=== PATIENT | male | born 1945 | race African-American/Black ===

== ENCOUNTER 2017-03-11 19:38 | Emergency (ER) | payer MEDICARE, OTHER ==
[2017-03-11 21:18] LABS: Basophils % (Auto) 0.6 % (0.0-1.8); Eosinophils % (Auto) 4.2 % (0.0-4.3); Hematocrit 40.9 % (35.5-45.6); Mean Corpuscular HGB Conc 34 % (32-34); Mean Corpuscular Hemoglobin 33 pg (28-32); Mean Corpuscular Volume 96 fl (84-94); Platelet Count 281 K/mm3 (140-440); Red Blood Count 4.27 M/mm3 (3.65-5.03); Red Cell Distribution Width 11.4 % (13.2-15.2); White Blood Count 6.8 K/mm3 (4.5-11.0)
[2017-03-11 21:32] LABS: BUN/Creatinine Ratio 15.83; C-Reactive Protein 0.1 mg/dL (0.00-1.30); Calcium 10.3 mg/dL (8.4-10.2); Chloride 95.7 mmol/L (98-107)
[2017-03-11 21:40] LABS: Erythrocyte Sedimentation Rate 6 mm/Hr (0-20)
--- NOTE | 2017-03-12 07:30 | XRay Report ---
BILATERAL ANKLES, 2 VIEWS HISTORY: Swelling. FINDINGS: There is mild bilateral nonspecific soft tissue swelling. This could represent pedal edema. The bony structures are intact. Minimal osteoarthritic changes are identified in both ankles. No evidence for fracture or bone lesion. IMPRESSION: Nonspecific soft tissue swelling or edema. This could represent pedal edema. Minor osteoarthritic changes which appear appropriate for this person's age.
--- NOTE | 2017-03-12 07:31 | XRay Report ---
BILATERAL FEET, 2 VIEWS History: Bilateral foot swelling. Findings: There is mild nonspecific soft tissue swelling. The bony structures are intact. No joint pathology is appreciated. Impression: Nonspecific soft tissue swelling.
[2017-03-12 07:56] VITALS: BP 155/75
--- NOTE | 2017-03-12 09:40 | Emergency Department Report ---
ED Extremity Problem HPI - General Chief complaint: Extremity Problem,Nontraumatic Stated complaint: FOOT PAIN/COLD SX Time Seen by Provider: 03/12/17 09:04 Source: patient Mode of arrival: Ambulatory Limitations: No Limitations - History of Present Illness MD Complaint: extremity swelling -: Gradual Location: bilateral lower extremity History of Same: No Radiation: none Severity scale (0 -10): 6 Consistency: constant Improves with: nothing Worsens with: other (started after taking amlodipine) Associated Symptoms: denies: chest pain, shortness of breath, fever, myalgias - Related Data Allergies Allergy/AdvReac Type Severity Reaction Status Date / Time No Known Allergies Allergy Verified 03/11/17 20:53 ED Review of Systems ROS: Stated complaint: FOOT PAIN/COLD SX Other details as noted in HPI Comment: All other systems reviewed and negative ED Past Medical Hx - Past Medical History Previous Medical History?: Yes Hx Hypertension: Yes Hx Psychiatric Treatment: Yes (Depression) - Surgical History Past Surgical History?: No - Social History Smoking Status: Never Smoker Substance Use Type: None ED Physical Exam - General Limitations: No Limitations General appearance: alert, in no apparent distress - Head Head exam: Present: atraumatic, normocephalic - Eye Eye exam: Present: normal appearance - ENT ENT exam: Present: normal exam, normal orophraynx, mucous membranes moist - Neck Neck exam: Present: normal inspection - Respiratory Respiratory exam: Present: normal lung sounds bilaterally. Absent: respiratory distress - Cardiovascular Cardiovascular Exam: Present: regular rate, normal rhythm. Absent: systolic murmur, diastolic murmur, rubs, gallop - GI/Abdominal GI/Abdominal exam: Present: soft, normal bowel sounds - Rectal Rectal exam: Present: deferred - Extremities Exam Extremities exam: Present: normal inspection - Back Exam Back exam: Present: normal inspection - Neurological Exam Neurological exam: Present: alert, oriented X3 - Psychiatric Psychiatric exam: Present: normal affect, normal mood - Skin Skin exam: Present: warm, dry, intact, normal color. Absent: rash ED Course Vital Signs 03/11/17 03/12/17 03/12/17 20:57 03:48 07:55 Temperature 98.4 F 98.7 F 97.5 F L Pulse Rate 74 68 83 Respiratory 18 18 14 Rate Blood Pressure 149/83 Blood Pressure 153/82 155/75 [Right] O2 Sat by Pulse 98 98 98 Oximetry ED Medical Decision Making - Lab Data Result diagrams: 03/11/17 20:58 03/11/17 20:58 - EKG Data When compared to previous EKG there are: no significant change - Medical Decision Making likely swelling from new medication./ normal labs at this time , will continue meds and he have pmd appointment for next week Critical care attestation.: If time is entered above; I have spent that time in minutes in the direct care of this critically ill patient, excluding procedure time. ED Disposition Clinical Impression: Leg swelling Disposition: DC-01 TO HOME OR SELFCARE Is pt being admited?: No Does the pt Need Aspirin: No Condition: Good Instructions: Leg Edema (ED) Referrals: [facility] [Other] - 3-5 Days Time of Disposition: 09:40
== END 2017-03-12 09:53 | disposition home or self-care (01) ==
LOC: ED 19:38
DX: M79.671 Pain in right foot (principal); M79.672 Pain in left foot; M79.89 Other specified soft tissue disorders; I10 Essential (primary) hypertension; F32.9 Major depressive disorder, single episode, unspecified
CPT/HCPCS: 36415; 80048; 82140; 82550; 85025; 85652; 86140; 99283

== ENCOUNTER 2017-11-16 18:52 | Emergency (ER) | payer MEDICARE, OTHER ==
[2017-11-16] MEDS ORDERED: ASPIRIN PO ONE (19:00)
--- NOTE | 2017-11-16 19:51 | Emergency Department Report ---
ED Chest Pain HPI - General Chief Complaint: Chest Pain Stated Complaint: CHEST PAIN/HYPERTENSIVE Time Seen by Provider: 11/16/17 19:45 Source: patient Mode of arrival: Ambulatory Limitations: Language Barrier - History of Present Illness MD Complaint: other (High BP is his main concern. He was originally on Doxazosin for HTN but it was discontinued and he was put on Lisinopril instead. He has not been taking it because it makes him feel sick and "causes his BP to go up". He denies chest pain, SHOB, nausea, and vomiting. ) - Related Data Allergies Allergy/AdvReac Type Severity Reaction Status Date / Time No Known Allergies Allergy Verified 03/11/17 20:53 Heart Score - HEART Score History: Slightly suspicious EKG: Normal Age: > 65 Risk factors: 1-2 risk factors Troponin: < normal limit HEART Score: 3 - Critical Actions Critical Actions: 4-6 pts:12-16.6% risk of adverse cardiac event. Should be admitted ED Review of Systems ROS: Stated complaint: CHEST PAIN/HYPERTENSIVE Other details as noted in HPI Constitutional: denies: chills, fever Eyes: denies: eye pain, eye discharge, vision change ENT: denies: ear pain, throat pain Respiratory: denies: cough, shortness of breath, wheezing Cardiovascular: denies: chest pain, palpitations Endocrine: no symptoms reported Gastrointestinal: denies: abdominal pain, nausea, diarrhea Genitourinary: denies: urgency, dysuria Musculoskeletal: denies: back pain, joint swelling, arthralgia Skin: denies: rash, lesions Neurological: denies: headache, weakness, paresthesias Psychiatric: denies: anxiety, depression Hematological/Lymphatic: denies: easy bleeding, easy bruising ED Past Medical Hx - Past Medical History Previous Medical History?: Yes Hx Hypertension: Yes Hx Psychiatric Treatment: Yes (Depression) - Surgical History Past Surgical History?: No - Social History Smoking Status: Never Smoker Substance Use Type: None ED Physical Exam - General Limitations: Language Barrier General appearance: alert, in no apparent distress - Head Head exam: Present: atraumatic, normocephalic - Eye Eye exam: Present: normal appearance - ENT ENT exam: Present: mucous membranes moist - Neck Neck exam: Present: normal inspection - Respiratory Respiratory exam: Present: normal lung sounds bilaterally. Absent: respiratory distress - Cardiovascular Cardiovascular Exam: Present: regular rate, normal rhythm. Absent: systolic murmur, diastolic murmur, rubs, gallop - GI/Abdominal GI/Abdominal exam: Present: soft, normal bowel sounds - Rectal Rectal exam: Present: deferred - Extremities Exam Extremities exam: Present: normal inspection - Back Exam Back exam: Present: normal inspection - Neurological Exam Neurological exam: Present: alert, oriented X3 - Psychiatric Psychiatric exam: Present: normal affect, normal mood - Skin Skin exam: Present: warm, dry, intact, normal color. Absent: rash ED Course Vital Signs 11/16/17 11/16/17 18:57 19:50 Temperature 98.3 F Pulse Rate 64 Respiratory 18 14 Rate Blood Pressure 170/79 O2 Sat by Pulse 96 99 Oximetry MARIPOSA score - Mariposa Score Age > 65: (1) Yes Aspirin use within the Past 7 Days: (1) Yes 3 or more CAD Risk Factors: (0) No 2 or more Angina events in past 24 hrs: (0) No Known CAD with more than 50% Stenosis: (0) No Elevated Cardiac Markers: (0) No ST Deviation Greater than 0.5mm: (0) No MARIPOSA Score: 2 ED Medical Decision Making - Lab Data Result diagrams: 11/16/17 19:22 11/16/17 19:22 Critical care attestation.: If time is entered above; I have spent that time in minutes in the direct care of this critically ill patient, excluding procedure time. ED Disposition Clinical Impression: Hyponatremia Hypertension Qualifiers: Hypertension type: unspecified Qualified Code(s): I10 - Essential (primary) hypertension Disposition: DC- TO HOME OR SELFCARE Is pt being admited?: No Does the pt Need Aspirin: No Condition: Good Instructions: Hypertension (ED) Referrals: PRIMARY CARE, [Primary Care Provider] - 3-5 Days Time of Disposition: 23:29
[2017-11-16 19:57] LABS: Basophils % (Auto) 0.5 % (0.0-1.8); Eosinophils # (Auto) 0.1 K/mm3 (0.0-0.4); Eosinophils % (Auto) 1.5 % (0.0-4.3); Hematocrit 40.3 % (35.5-45.6); Hemoglobin 13.9 gm/dl (11.8-15.2); Lymphocytes # (Auto) 1.3 K/mm3 (1.2-5.4); Lymphocytes % (Auto) 22.5 % (13.4-35.0); Mean Corpuscular HGB Conc 34 % (32-34); Mean Corpuscular Hemoglobin 34 pg (28-32); Mean Corpuscular Volume 98 fl (84-94); Monocytes # (Auto) 0.7 K/mm3 (0.0-0.8); Platelet Count 283 K/mm3 (140-440); Red Blood Count 4.12 M/mm3 (3.65-5.03); Red Cell Distribution Width 11.8 % (13.2-15.2)
[2017-11-16 20:12] LABS: BUN/Creatinine Ratio 14; Blood Urea Nitrogen 13 mg/dL (9-20); Calcium 9.1 mg/dL (8.4-10.2); Hemolysis Index 5
[2017-11-16] MEDS ORDERED: NACL 0.9% 500 ML 500 ML IV ONE (22:32)
[2017-11-16 23:32] VITALS: BP 171/79
== END 2017-11-16 23:56 | disposition home or self-care (01) ==
LOC: ED 18:52
DX: E87.1 Hypo-osmolality and hyponatremia (principal); I10 Essential (primary) hypertension; F32.9 Major depressive disorder, single episode, unspecified
CPT/HCPCS: 36415; 80048; 84484; 85025; 93005; 93010; 99283; J7040

== ENCOUNTER 2020-06-02 20:07 | Emergency (ER) | payer MEDICARE, OTHER ==
[2020-06-02] MEDS ORDERED: ASPIRIN 325 MG TAB PO ONE (20:25)
[2020-06-02 20:48] LABS: Basophils # (Auto) 0.1 K/mm3 (0.0-0.1); Eosinophils # (Auto) 0.1 K/mm3 (0.0-0.4); Eosinophils % (Auto) 2.4 % (0.0-4.3); Hematocrit 37.3 % (35.5-45.6); Hemoglobin 13.4 gm/dl (11.8-15.2); Lymphocytes # (Auto) 1.3 K/mm3 (1.2-5.4); Lymphocytes % (Auto) 24.1 % (13.4-35.0); Mean Corpuscular HGB Conc 36 % (32-34); Mean Corpuscular Volume 97 fl (84-94); Monocytes # (Auto) 0.6 K/mm3 (0.0-0.8); Platelet Count 252 K/mm3 (140-440); Red Blood Count 3.85 M/mm3 (3.65-5.03); Red Cell Distribution Width 11.5 % (13.2-15.2)
--- NOTE | 2020-06-02 21:00 | XRay Report ---
CHEST 1 VIEW 06/02/2020 8:50 PM INDICATION / CLINICAL INFORMATION: Chest Pain. COMPARISON: None available. FINDINGS: SUPPORT DEVICES: None. HEART / MEDIASTINUM: No significant abnormality. LUNGS / PLEURA: No significant pulmonary or pleural abnormality. No pneumothorax. ADDITIONAL FINDINGS: No significant additional findings. IMPRESSION: 1. No acute findings. Signer Name: Yamilka Virk MD Signed: 06/02/2020 8:56 PM Workstation Name: [id number]
[2020-06-02 21:03] LABS: BUN/Creatinine Ratio 12; Blood Urea Nitrogen 11 mg/dL (9-20); Calcium 9.6 mg/dL (8.4-10.2); Hemolysis Index 7
--- NOTE | 2020-06-02 22:09 | Emergency Department Report ---
ED Chest Pain HPI - General Chief Complaint: Chest Pain Stated Complaint: CHEST PAIN, ELEVATED BLOOD PRESSURE Time Seen by Provider: 06/02/20 21:53 Source: patient Mode of arrival: Ambulatory Limitations: No Limitations - History of Present Illness Initial Comments: 75-year-old male, history of hypertension, presents to ED with several complaints. Patient reports he has been unable to eat or sleep over the last 2 weeks. Patient states he has not had an appetite. He denies any vomiting, abdominal pain, diarrhea. He also reports pain all over. Denies fever, cough, SOB. He reports that he has been having some mild chest pain located in the left chest for the last 2 days. Patient is unable to characterize the chest pain. He denies pleuritic pain. Patient reports some mild shortness of breath with exertion. He denies any leg pain or swelling. MD Complaint: chest pain -: days(s) (2) Onset: during exertion Pain Location: left chest Pain Radiation: none Severity: mild Quality: other (Unable to characterize) Improves With: nothing Worsens With: nothing re: dyspnea. denies: nausea, vomting, diaphoresis Other Symptoms: denies: cough, fever, leg swelling - Related Data Previous Rx's Medication Instructions Recorded Last Taken Type Naproxen [Naprosyn] 500 mg PO BID PRN #20 tablet 06/03/20 Unknown Rx Allergies Allergy/AdvReac Type Severity Reaction Status Date / Time No Known Allergies Allergy Verified 03/11/17 20:53 Heart Score - HEART Score History: Slightly suspicious EKG: Normal Age: > 65 Risk factors: 1-2 risk factors Troponin: < normal limit HEART Score: 3 ED Review of Systems ROS: Stated complaint: CHEST PAIN, ELEVATED BLOOD PRESSURE Other details as noted in HPI Comment: All other systems reviewed and negative Constitutional: denies: chills, fever Respiratory: shortness of breath. denies: cough Cardiovascular: chest pain Gastrointestinal: denies: abdominal pain, nausea, vomiting, diarrhea Musculoskeletal: arthralgia ED Past Medical Hx - Past Medical History Previous Medical History?: Yes Hx Hypertension: Yes Hx Psychiatric Treatment: Yes (Depression) - Surgical History Past Surgical History?: No - Social History Smoking Status: Never Smoker Substance Use Type: None - Medications Home Medications: Home Medications Medication Instructions Recorded Confirmed Last Taken Type Naproxen [Naprosyn] 500 mg PO BID PRN #20 tablet 06/03/20 Unknown Rx ED Physical Exam - General Limitations: No Limitations General appearance: alert, in no apparent distress - Head Head exam: Present: atraumatic, normocephalic - Eye Eye exam: Present: normal appearance, EOMI - ENT ENT exam: Present: mucous membranes moist - Neck Neck exam: Present: normal inspection - Respiratory Respiratory exam: Present: normal lung sounds bilaterally. Absent: respiratory distress - Cardiovascular Cardiovascular Exam: Present: regular rate, normal rhythm - GI/Abdominal GI/Abdominal exam: Present: soft. Absent: distended, tenderness - Extremities Exam Extremities exam: Present: normal inspection. Absent: pedal edema, calf tenderness - Back Exam Back exam: Present: normal inspection. Absent: vertebral tenderness - Neurological Exam Neurological exam: Present: alert, oriented X3 - Psychiatric Psychiatric exam: Present: normal affect, normal mood - Skin Skin exam: Present: warm, dry, intact, normal color ED Course Vital Signs 06/02/20 06/02/20 06/02/20 20:13 21:40 22:00 Temperature 98.2 F 98.1 F Pulse Rate 64 61 64 Respiratory 18 18 15 Rate Blood Pressure 175/72 185/78 Blood Pressure 200/75 [Left] O2 Sat by Pulse 95 99 99 Oximetry 06/02/20 06/02/20 06/02/20 22:15 22:30 22:46 Temperature Pulse Rate 66 66 91 H Respiratory 14 18 20 Rate Blood Pressure 164/73 164/73 132/66 Blood Pressure [Left] O2 Sat by Pulse 98 98 96 Oximetry 06/02/20 06/02/20 06/02/20 23:00 23:15 23:30 Temperature Pulse Rate 65 64 63 Respiratory 14 17 15 Rate Blood Pressure 132/66 164/70 171/71 Blood Pressure [Left] O2 Sat by Pulse 97 95 98 Oximetry 06/02/20 06/02/20 06/03/20 23:46 23:56 00:00 Temperature Pulse Rate 62 61 58 L Respiratory 17 14 15 Rate Blood Pressure 151/76 151/76 155/69 Blood Pressure [Left] O2 Sat by Pulse 97 96 98 Oximetry 06/03/20 00:15 Temperature Pulse Rate 61 Respiratory 16 Rate Blood Pressure 157/78 Blood Pressure [Left] O2 Sat by Pulse 97 Oximetry MARIPOSA score - Mariposa Score Age > 65: (1) Yes Aspirin use within the Past 7 Days: (1) Yes 3 or more CAD Risk Factors: (0) No 2 or more Angina events in past 24 hrs: (0) No Known CAD with more than 50% Stenosis: (0) No Elevated Cardiac Markers: (0) No ST Deviation Greater than 0.5mm: (0) No MARIPOSA Score: 2 ED Medical Decision Making - Lab Data Result diagrams: 06/02/20 20:30 06/02/20 20:30 - EKG Data -: EKG Interpreted by Me EKG shows normal: sinus rhythm, axis, intervals, QRS complexes, ST-T waves Rate: normal - EKG Data Interpretation: no acute changes - Radiology Data Radiology results: report reviewed, image reviewed - Medical Decision Making 75-year-old male presents to ED with complaint of generalized pain, insomnia, decreased appetite. Patient also reports chest pain and shortness of breath, however states that it is very mild in nature. Patient initially hypertensive with systolic in the 200s, however blood pressure has improved without intervention. He is afebrile. O2 sats are normal. EKG and troponin are both normal x2. D-dimer is negative. Chest x-ray is negative for any acute findings. Patient had a sodium level of 125, however he was also hyponatremic on last ED visit in 2018, so this is likely chronic. He is not symptomatic from his sodium. Patient does not require admission at this time. He will be discharged. Outpatient follow-up advised, return precautions given. - Differential Diagnosis ACS, PE, pneumonia, CHF Critical care attestation.: If time is entered above; I have spent that time in minutes in the direct care of this critically ill patient, excluding procedure time. ED Disposition Clinical Impression: Chest pain Disposition: DC-01 TO HOME OR SELFCARE Is pt being admited?: No Condition: Stable Instructions: Chest Pain (ED) Prescriptions: Naproxen [Naprosyn] 500 mg PO BID PRN #20 tablet PRN Reason: pain Referrals: PRIMARY CARE, [Primary Care Provider] - 3-5 Days Time of Disposition: 00:09
[2020-06-02 22:22] LABS: INR 0.74 (0.87-1.13)
[2020-06-02] MEDS ORDERED: ASPIRIN 325 MG TAB ONE (23:16)
[2020-06-03 00:19] VITALS: BP 157/78
== END 2020-06-03 00:25 | disposition home or self-care (01) ==
LOC: ED 20:07
DX: R07.89 Other chest pain (principal); R06.02 Shortness of breath; I10 Essential (primary) hypertension; F32.9 Major depressive disorder, single episode, unspecified; Z79.899 Other long term (current) drug therapy
CPT/HCPCS: 36415; 71045; 80048; 84484; 85025; 85379; 85610; 85730; 93005